=== PATIENT | female | born 1935 | race Caucasian/White ===

== ENCOUNTER → 2017-03-03 | Outpatient (CLI) | payer OTHER, MEDICAID | LOC: FIMAGING 12:04 | PROVIDERS: ATTEND Family Medicine | DX: I87.2 Venous insufficiency (chronic) (peripheral) (principal); R60.0 Localized edema; I10 Essential (primary) hypertension; Z86.711 Personal history of pulmonary embolism ==

== ENCOUNTER → 2017-12-08 | Outpatient (CLI) | payer OTHER, MEDICAID | LOC: BHFA 10:45 | PROVIDERS: ATTEND Internal Medicine Cardiovascular Disease | DX: I50.9 Heart failure, unspecified (principal) ==